=== PATIENT | female | born 1945 | race Caucasian/White ===

== ENCOUNTER 2019-10-29 16:09 | Emergency (ER) | payer MEDICARE ==
[~2019-10-29] VITALS: Ht 157.5 cm; Wt 61.8 kg
[~2019-10-29 16:09] MED LIST: ALLEGRA; ATOR10TA87 PO; MUCINEX
[2019-10-29] MEDS ORDERED: normal saline 1000ml 1,000 ML IV ONE (17:00)
[2019-10-29 17:32] LABS: CLARITY,URINE SLIGHTLY CLOUDY (Clear); COLOR,URINE YELLOW (Yellow); GLUCOSE, URINE NEGATIVE (Neg); KETONES,URINE TRACE mg/dl (Neg); LEUKOCYTE ESTERASE ,URINE NEGATIVE (Neg); NITRITES, URINE NEGATIVE (Neg); OCCULT BLOOD,URINE TRACE-INTACT (Neg); PROTEIN,URINE NEGATIVE (Neg); UA COLLECTION TYPE CLN CATCH MIDSTREAM; UROBILINOGEN,URINE 0.2 E.U/dL (0.2-1.0)
[2019-10-29 17:33] LABS: BASOPHILS % (AUTO) 0.3 % (0-1); EOSINOPHILS % (AUTO) 0.2 % (0-6); HEMATOCRIT 39.4 % (35.0-45.0); HEMOGLOBIN 13.3 g/dl (12.0-16.0); LYMPHOCYTES # (AUTO) 0.7 X10'3 (1.1-4.8); LYMPHOCYTES % (AUTO) 7.5 % (21-51); MEAN CORPUSCULAR HEMOGLOBIN 29.4 PG (27.0-31.0); MEAN CORPUSCULAR HGB CONC 33.8 g/dL (33.0-36.5); MEAN CORPUSCULAR VOLUME 86.9 FL (78-98); MEAN PLATELET VOLUME 9.2 FL (7.4-10.4); MONOCYTES # (AUTO) 0.5 X10'3 (0-0.9); MONOCYTES % (AUTO) 5.8 % (2-12); NEUTROPHILS # (AUTO) 8.1 X10'3 (1.8-7.7); NEUTROPHILS % (AUTO) 86.2 % (42-75); PLATELET COUNT 254 X10'3 (140-440); RED BLOOD COUNT 4.53 X10'6 (4.20-5.60); RED CELL DISTRIBUTION WIDTH 15.6 % (11.5-14.5); WHITE BLOOD COUNT 9.4 X10'3 (4.5-11.0)
[2019-10-29 17:38] LABS: MUCUS STRANDS FEW /LPF (Neg); SQUAMOUS EPITHELIAL CELL,UR FEW /LPF (FEW); TRANSITIONAL EPI CELLS,URINE FEW /HPF
[2019-10-29 17:39] LABS: BACTERIA,URINE NONE SEEN /HPF (Neg); WBC,URINE 0-4 /HPF (0-4)
[2019-10-29 17:40] LABS: AMORPHOUS PHOSPHATES 1+; RENAL CELLS, URINE FEW /HPF
[2019-10-29 17:45] LABS: PARTIAL THROMBOPLASTIN TIME 28 SECONDS (22-32)
[2019-10-29 17:47] LABS: ALANINE AMINOTRANSFERASE 15 U/L (12-78); ALBUMIN 3.8 G/DL (3.4-5.0); ALBUMIN/GLOBULIN RATIO 1.1 (1.1-1.5); ALKALINE PHOSPHATASE 74 IU/L (46-116); ANION GAP 7 (8-16); ASPARTATE AMINO TRANSFERASE 24 U/L (10-37); BILIRUBIN,TOTAL 0.4 MG/DL (0.1-1.0); BLOOD UREA NITROGEN 19 MG/DL (7-18); BUN/CREATININE RATIO 19.6 (6.6-38.0); CALCIUM 9.4 MG/DL (8.5-10.1); CHLORIDE 105 MMOL/L (99-107); CREATININE 0.97 MG/DL (0.40-0.90); GLUCOSE 123 MG/DL (70-104); LIPASE 54 U/L (73-393); MAGNESIUM 2.2 MG/DL (1.5-2.4); POTASSIUM 3.6 MMOL/L (3.5-5.1); SODIUM 142 MMOL/L (135-145); TOTAL PROTEIN 7.3 G/DL (6.4-8.2); eGFR 56 ML/MIN
[2019-10-29] MEDS ORDERED: magnesium citrate 296ml oral solution PO ONE (18:15)
[2019-10-29] MEDS ORDERED: docusate sod 100mg capsule PO ONE (18:15)
[2019-10-29] MEDS ORDERED: proCHLORperazine 10 MG/2 ml inj IV ONE (18:25)
[2019-10-29] MEDS ORDERED: ondansetron/PF 4mg/2ml inj IV ONE (18:25)
[2019-10-29 19:02] VITALS: BP 150/78
== END 2019-10-29 19:04 | disposition home or self-care (01) ==
LOC: ER 16:10
DX: K59.00 Constipation, unspecified (principal); R11.10 Vomiting, unspecified; Z90.710 Acquired absence of both cervix and uterus; Z98.890 Other specified postprocedural states; Z88.2 Allergy status to sulfonamides; Z88.1 Allergy status to other antibiotic agents; Z79.899 Other long term (current) drug therapy
CPT/HCPCS: 36415; 74176; 80053; 81001; 83690; 83735; 84145; 85025; 85610; 85730; 93005; 96374; 96375; 99285; J0780; J2405; J7030

== ENCOUNTER 2019-11-08 13:35 | Outpatient (CLI) | payer MEDICARE ==
[~2019-11-08 13:35] MED LIST changes: +CALC-393; +CHOL500049 PO; +GLUCOSAMINE; +HYDR-4383 PO; +MONT10TA26 PO; -MUCINEX; +TROS20TA4 PO
== END 2019-11-08 15:04 | disposition home or self-care (01) ==
LOC: WOUND CARE 13:35
PROVIDERS: ATTEND Surgery
DX: T81.89XA Other complications of procedures, not elsewhere classified, initial encounter (principal); K21.9 Gastro-esophageal reflux disease without esophagitis; E78.5 Hyperlipidemia, unspecified; N13.30 Unspecified hydronephrosis; Z93.3 Colostomy status; Z90.710 Acquired absence of both cervix and uterus; Z90.13 Acquired absence of bilateral breasts and nipples; Z85.51 Personal history of malignant neoplasm of bladder; Z85.3 Personal history of malignant neoplasm of breast; Z87.442 Personal history of urinary calculi; Z98.42 Cataract extraction status, left eye; Z98.41 Cataract extraction status, right eye; Z79.899 Other long term (current) drug therapy; Z98.890 Other specified postprocedural states; Y92.89 Other specified places as the place of occurrence of the external cause; Y83.8 Other surgical procedures as the cause of abnormal reaction of the patient, or of later complication, without mention of misadventure at the time of the procedure
CPT/HCPCS: G0463